=== PATIENT | male | born 1955 | race Asian ===

== ENCOUNTER 2016-09-18 10:56 | Emergency (ER) | payer SELFPAY ==
[~2016-09-18 10:56] MED LIST: LISI40TA PO; METO25 PO; NOVONP2 SQ; ZOCO40TA PO
[2016-09-18 10:57] VITALS: BP 139/65; PULSE 89; RESP 16; TEMP 98.6; O2SAT 97
[2016-09-18 11:18] VITALS: BP 188/83; PULSE 83; RESP 18; O2SAT 97
[2016-09-18] MEDS ORDERED: METO25TA3 PO (11:20)
[2016-09-18] MEDS ORDERED: LISI40TA PO (11:20)
[2016-09-18] MEDS ORDERED: NOVONP2 SQ (11:20)
[2016-09-18] MEDS ORDERED: SIMV40TA PO (11:20)
[2016-09-18] MEDS ORDERED: TERA2CAP3 PO (11:24)
[2016-09-18] MEDS ORDERED: SODIUM CHLOR 0.9% 1000 ML INJ 1,000 ML IV ONE (11:25)
[2016-09-18] MEDS ORDERED: SODIUM CHLORIDE 0.9% FLUSH 10 ML FLUSH IVF PRN (11:30)
--- NOTE | 2016-09-18 11:38 | RADRPT ---
EXAM DATE/TIME: 09/18/2016 11:37 [facility] COMPARISON: No previous studies available for comparison. INDICATIONS : weakness MEDICAL HISTORY : Diabetes mellitus type II. Hypertension SURGICAL HISTORY : None. ENCOUNTER: Initial ACUITY: 2 months PAIN SCORE: 0/10 LOCATION: chest FINDINGS: A single view of the chest demonstrates the lungs to be symmetrically aerated without evidence of mas s, infiltrate or effusion. The cardiomediastinal contours are unremarkable. Osseous structures are intact. CONCLUSION: Normal examination. Rowdy Carter MD on September 18, 2016 at 11:36 Board Certified Radiologist. This report was verified electronically.
--- NOTE | 2016-09-18 11:41 | PD ---
HPI Chief Complaint: GI Complaint Time Seen by Provider: 11:27 Travel History International Travel<30 days: No Contact w/Intl Traveler<30days: No Traveled to known affect area: No History of Present Illness HPI 61-year-old with a history of hypertension, hyperlipidemia, and diabetes presents to the emergency department for evaluation of abdominal pain after eating, nausea, fatigue, lightheadedness, urinary frequency and odor and myalgias. Patient states that his symptoms began about one month ago. States that initially he had fatigue and myalgias. States that he is also developed epigastric abdominal pain after eating with nausea. States he saw his PCP 2 weeks ago and had an EKG that was unremarkable and renal ultrasound that showed kidney disease. States that he has been referred to a fittings finisher and has an outstanding order for an echocardiogram. States that he is feeling so bad today that he had to come to the emergency department for further evaluation. He denies any fever, chills, vomiting, diarrhea, constipation, bloody stool, chest pain, shortness of breath, headache, vision changes, numbness or tingling. Denies any history of heart disease or HI. PCP is the [place]. No other complaints. PFSH Past Medical History Arthritis: Yes Blood Disorders: No Anxiety: Yes Cancer: No Cardiovascular Problems: Yes Chest Pain: Yes (STARTED HAVING CHEST PAIN 03/25/08) Diabetes: Yes Patient Takes Glucophage: Yes Endocrine: Yes Genitourinary: No Hypertension: Yes Immune Disorder: No Musculoskeletal: Yes Neurologic: Yes Reproductive: Yes (CANNOT EJACULATE) Respiratory: No Social History Alcohol Use: No Tobacco Use: No Substance Use: No Allergies-Medications (Allergen,Severity, Reaction): Coded Allergies: Penicillin (Verified Allergy, Unknown, 09/18/16) Reported Meds & Prescriptions Reported Meds & Active Scripts Active Reported Terazosin (Terazosin HCl) 2 Mg Cap 2 Mg PO HS Novolin N Inj (Insulin Human NPH) 1,000 Unit/10 Ml Vial 15 Units SQ BID Lisinopril 40 Mg Tab 40 Mg PO BID Metoprolol Tartrate 25 Mg Tab 25 Mg PO BID Simvastatin 40 Mg Tab 40 Mg PO HS Review of Systems Except as stated in HPI: all other systems reviewed are Neg Physical Exam Narrative GENERAL: Well-nourished and well-developed pleasant patient in no acute distress who is nontoxic appearing. SKIN: Warm and dry. HEAD: Normocephalic and atraumatic. EYES: No injection, drainage, or hyphema noted. PERRLA. EOMI. ENT: No nasal drainage noted. Oropharynx is clear. NECK: Supple and the trachea is midline. CARDIOVASCULAR: Regular rate and rhythm. RESPIRATORY: Breath sounds are equal bilaterally with no accessory muscle use, wheezing, rhonchi, or crackles. GASTROINTESTINAL: Abdomen is soft, non-tender, and nondistended. Negative McBurney's point. Negative Vazquez's sign. No rebound tenderness or guarding. MUSCULOSKELETAL: No obvious deformities, swelling, cyanosis, or ecchymosis is present throughout the upper and lower extremities. Patient has full range of motion without any signs of neurovascular compromise. NEUROLOGICAL: Awake, alert, and oriented. Normal speech and gait. Cranial nerves are grossly intact. Data Data Last Documented VS Vital Signs Date Time Temp Pulse Resp B/P Pulse Ox O2 Delivery O2 Flow Rate FiO2 09/18/16 11:18 83 18 188/83 97 Room Air 09/18/16 10:57 98.6 Orders Electrocardiogram (09/18/16 ) Electrocardiogram (09/18/16 11:25) Complete Blood Count With Diff (09/18/16 11:25) Comprehensive Metabolic Panel (09/18/16 11:25) Magnesium (Mg) (09/18/16 11:25) Troponin I (09/18/16 11:25) Urinalysis - C+S If Indicated (09/18/16 11:25) Chest, Single Ap (09/18/16 11:25) Ct Brain W/O Iv Contrast(Rout) (09/18/16 11:25) Ecg Monitoring (09/18/16 11:25) Iv Access Insert/Monitor (09/18/16 11:25) Oximetry (09/18/16 11:25) Sodium Chloride 0.9% Flush (Ns Flush) (09/18/16 11:30) Sodium Chlor 0.9% 1000 Ml Inj (Ns 1000 M (09/18/16 11:25) Creatine Kinase (Cpk) (09/18/16 11:25) Insulin Human Regular Inj (Novolin R Inj (09/18/16 13:15) Labs Laboratory Tests Test 09/18/16 09/18/16 11:39 12:00 White Blood Count 6.9 TH/MM3 Red Blood Count 4.59 MIL/MM3 Hemoglobin 12.9 GM/DL Hematocrit 38.6 % Mean Corpuscular Volume 84.1 FL Mean Corpuscular Hemoglobin 28.2 PG Mean Corpuscular Hemoglobin 33.5 % Concent Red Cell Distribution Width 13.9 % Platelet Count 201 TH/MM3 Mean Platelet Volume 8.6 FL Neutrophils (%) (Auto) 81.2 % Lymphocytes (%) (Auto) 11.9 % Monocytes (%) (Auto) 5.3 % Eosinophils (%) (Auto) 0.7 % Basophils (%) (Auto) 0.9 % Neutrophils # (Auto) 5.6 TH/MM3 Lymphocytes # (Auto) 0.8 TH/MM3 Monocytes # (Auto) 0.4 TH/MM3 Eosinophils # (Auto) 0.0 TH/MM3 Basophils # (Auto) 0.1 TH/MM3 CBC Comment DIFF FINAL Differential Comment Sodium Level 137 MEQ/L Potassium Level 4.2 MEQ/L Chloride Level 102 MEQ/L Carbon Dioxide Level 24.9 MEQ/L Anion Gap 10 MEQ/L Blood Urea Nitrogen 28 MG/DL Creatinine 1.81 MG/DL Estimat Glomerular Filtration 38 ML/MIN Rate Random Glucose 301 MG/DL Calcium Level 9.0 MG/DL Magnesium Level 1.6 MG/DL Total Bilirubin 0.6 MG/DL Aspartate Amino Transf 21 U/L (AST/SGOT) Alanine Aminotransferase 22 U/L (ALT/SGPT) Alkaline Phosphatase 78 U/L Total Creatine Kinase 86 U/L Troponin I LESS THAN 0.02 NG/ML Total Protein 7.3 GM/DL Albumin 3.6 GM/DL Urine Color YELLOW Urine Turbidity CLEAR Urine pH 5.5 Urine Specific [place] 1.013 Urine Protein 30 mg/dL Urine Glucose (UA) 1000 mg/dL Urine Ketones NEG mg/dL Urine Occult Blood NEG Urine Nitrite NEG Urine Bilirubin NEG Urine Urobilinogen LESS THAN 2.0 MG/DL Urine Leukocyte Esterase NEG Urine RBC LESS THAN 1 /hpf Urine WBC 1 /hpf Urine Squamous Epithelial 1 /hpf Cells Urine Hyaline Casts 1 /lpf Microscopic Urinalysis Comment CULT NOT INDICATED MDM Medical Decision Making Medical Screen Exam Complete: Yes Emergency Medical Condition: Yes Differential Diagnosis Electrolyte abnormality versus dehydration versus hyperglycemia versus other Narrative Course 61-year-old male presents to the emergency department for evaluation of multiple somatic complaints including lightheadedness, fatigue, body aches, epigastric abdominal pain. Patient is afebrile, vital signs are stable. Physical examination is unremarkable. Abdominal examination is benign. IV access is obtained, labs have been drawn and sent. Patient is placed on cardiac telemetry and pulse oximetry monitoring. EKG shows sinus rhythm with no acute ST elevations or depressions. CBC shows mild anemia with hemoglobin of 12.9, hematocrit 38.6. CMP shows renal insufficiency with a creatinine of 1.81, BUN 28, GFR 38. Hyperglycemia with a glucose of 301. Troponin is less than 0.02. Urinalysis shows 30 protein and 1000 glucose. Chest x-ray is unremarkable. Head CT is negative for any acute abnormalities. Labs are unremarkable with exception of hyperglycemia and renal insufficiency. Recheck with fingerstick glucose is 237. Discussed with the patient that labs and imaging are unremarkable for any acute abnormalities. He has remained stable while here in the emergency department. At this point my plan is to have him follow-up as an outpatient with his PCP. He verbalizes understanding and agreement with treatment plan. I discussed the case with my attending physician Dr. Avina who is aware of the patients history, physical examination findings, and treatment plan. Diagnosis Primary Impression: Generalized weakness Additional Impression: Hyperglycemia Referrals: Primary Care Physician Patient Instructions: General Instructions, Weakness (ED) Additional Instructions: Follow-up with your Primary Care Physician. Return to the ED for any acute worsening of symptoms. Med/Other Pt SpecificInfo: No Change to Meds Disposition: 01 DISCHARGE HOME Condition: Stable Elizabeth Andre Sep 18, 2016 11:41
[2016-09-18 11:54] LABS: AUTOMATED NEUTROPHIL # 5.6 TH/MM3 (1.8-7.7); BASOPHIL # 0.1 TH/MM3 (0-0.2); BASOPHIL % 0.9 % (0.0-2.0); EOSINOPHIL % 0.7 % (0.0-4.0); HEMATOCRIT 38.6 % (39.0-51.0); HEMO FLAGS DIFF FINAL; LYMPH % 11.9 % (9.0-44.0); LYMPHOCYTE # 0.8 TH/MM3 (1.0-4.8); MEAN CELL VOLUME 84.1 FL (80.0-100.0); MEAN CORPUSCULAR HEMOGLOBIN 28.2 PG (27.0-34.0); MEAN CORPUSCULAR HGB CONC 33.5 % (32.0-36.0); MONO % 5.3 % (0.0-8.0); NEUT % 81.2 % (16.0-70.0); PLATELET COUNT 201 TH/MM3 (150-450); RED BLOOD COUNT 4.59 MIL/MM3 (4.50-5.90); RED CELL DISTRIBUTION WIDTH 13.9 % (11.6-17.2); WHITE BLOOD COUNT 6.9 TH/MM3 (4.0-11.0)
--- NOTE | 2016-09-18 12:00 | RADRPT ---
EXAM DATE/TIME: 09/18/2016 11:45 [facility] COMPARISON: No previous studies available for comparison. INDICATIONS : Dizziness and malase. RADIATION DOSE: 40.73 CTDIvol (mGy) MEDICAL HISTORY : Cardiovascular disease. Hypertension. Diabetes SURGICAL HISTORY : None. ENCOUNTER: Initial ACUITY: 1 month PAIN SCALE: 0/10 LOCATION: Bilateral cranial TECHNIQUE: Multiple contiguous axial images were obtained of the head. Using automated exposure control and adj ustment of the mA and/or kV according to patient size, radiation dose was kept as low as reasonably a chievable to obtain optimal diagnostic quality images. DICOM format image data is available electro nically for review and comparison. FINDINGS: CEREBRUM: The ventricles are normal for age. No evidence of midline shift, mass lesion, hemorrhage or acute in farction. No extra-axial fluid collections are seen. POSTERIOR FOSSA: The cerebellum and brainstem are intact. The 4th ventricle is midline. The cerebellopontine angle i s unremarkable. EXTRACRANIAL: The visualized portion of the orbits is intact. SKULL: The calvaria is intact. No evidence of skull fracture. CONCLUSION: Normal examination. Rowdy Carter MD on September 18, 2016 at 11:58 Board Certified Radiologist. This report was verified electronically.
[2016-09-18 12:13] LABS: BLOOD, URINE NEG (NEG); GLUCOSE,URINE 1000 mg/dL (NEG); HYALINE CAST, URINE 1 /lpf (RARE); KETONE, URINE NEG (NEG); NITRITE,URINE NEG (NEG); PH, URINE 5.5 (5.0-8.5); SQUAMOUS EPITHELIAL CELL URINE 1 /hpf (0-5); URINE COLOR YELLOW (YELLW/STRAW)
[2016-09-18 12:15] LABS: ANION GAP 10 MEQ/L (5-15); AST (GOT) 21 U/L (15-37); BICARBONATE 24.9 MEQ/L (21.0-32.0); BLOOD UREA NITROGEN 28 MG/DL (7-18); CHLORIDE 102 MEQ/L (98-107); GLOMERULAR FILTRATION RATE 38 ML/MIN (>89); MAGNESIUM 1.6 MG/DL (1.5-2.5); POTASSIUM 4.2 MEQ/L (3.5-5.1); SODIUM (NA) 137 MEQ/L (136-145)
[2016-09-18 12:16] LABS: ALT (GPT) 22 U/L (12-78)
[2016-09-18 12:20] LABS: ALKALINE PHOSPHATASE 78 U/L (45-117); TOTAL BILIRUBIN ADULT 0.6 MG/DL (0.2-1.0)
[2016-09-18 12:24] LABS: CREATINE KINASE 86 U/L (39-308)
[2016-09-18 12:45] LABS: COMMENT (UR) CULT NOT INDICATED; CULTURE IF INDICATED CULT NOT INDICATED
[2016-09-18] MEDS ORDERED: INSULIN HUMAN REGULAR 1,000 UNITS/10 ML VIAL SQ ONE (13:15)
--- NOTE | 2016-09-19 13:20 | EKG ---
Date Performed: 09/18/2016 Time Performed: 11:28:04 PTAGE: 61 years EKG: Sinus rhythm NORMAL ECG Compared to prior tracing no significant change PREVIOUS TRACING : 03/26/2008 18.59 DOCTOR: Vic Rizzo Interpretating Date/Time 09/19/2016 13:18:45
== END 2016-09-18 13:22 | disposition home or self-care (01) ==
LOC: NEPD 11:30
DX: R53.1 Weakness (principal); R10.13 Epigastric pain; R42 Dizziness and giddiness; E11.65 Type 2 diabetes mellitus with hyperglycemia; N28.9 Disorder of kidney and ureter, unspecified; D64.9 Anemia, unspecified; M13.80 Other specified arthritis, unspecified site; F41.9 Anxiety disorder, unspecified; I10 Essential (primary) hypertension
CPT/HCPCS: 70450; 71010; 80053; 81001; 82550; 83735; 84484; 85025; 93005; 96360; 99285; J7030